=== PATIENT | female | born 1965 | race Caucasian/White ===

== ENCOUNTER 2017-07-21 15:17 | Emergency (ER) | payer MEDICARE, MEDICAID ==
[~2017-07-21] VITALS: Ht 149.9 cm; Wt 100.0 kg
[~2017-07-21 15:17] MED LIST: CYCLOBENZAPRINE; GABA100C PO; HYDR-519; LORA-250; OMEP20TA2; OXYCONTIN; PRILOSEC; SEE MED SHEET; TRAMADOL; VALIUM
[2017-07-21 18:34] LABS: CLARITY URINE CLEAR (CLEAR); COLOR URINE YELLOW (YELLOW); KETONES URINE NEGATIVE (NEGATIVE); LEUKOCYTE ESTERASE URINE NEGATIVE (NEGATIVE); NITRITE URINE NEGATIVE (NEGATIVE); OCCULT BLOOD URINE NEGATIVE (NEGATIVE); PH URINE 6.5 (4.5-8.0); PROTEIN URINE NEGATIVE (NEGATIVE); SPECIFIC GRAVITY URINE 1.021 (1.005-1.030)
[2017-07-21 18:46] LABS: BASOPHILS % 0.6 % (0.0-2.0); EOSINOPHILS % 1.7 % (0.0-5.0); HEMATOCRIT. 42.8 % (36.0-48.0); HEMOGLOBIN. 13.8 g/dL (12.0-16.0); LYMPHOCYTES % 39.2 % (20.0-50.0); MEAN CORPUSCULAR HEMOGLOBIN 30.2 pg (28.0-32.0); MEAN CORPUSCULAR VOLUME 93.6 fL (81.0-99.0); MONOCYTES % 8.4 % (2.0-8.0); NEUTROPHILS % 50.1 % (40.0-76.0); PLATELET 286 x1000/uL (130-400); RED BLOOD CELL COUNT 4.58 mill/uL (4.2-5.4); RED CELL DISTRIBUTION WIDTH 13.9 % (11.6-14.6)
[2017-07-21 18:47] LABS: *AMPHETAMINES SCREEN URINE NEGATIVE (NEGATIVE); *BARBITURATES SCREEN URINE NEGATIVE (NEGATIVE); *BENZODIAZEPINES SCREEN URINE NEGATIVE (NEGATIVE); *COCAINE SCREEN URINE NEGATIVE (NEGATIVE); CANNABINOID URINE SCREEN NEGATIVE (NEGATIVE); OPIATES URINE SCREEN NEGATIVE (NEGATIVE); PHENCYCLIDINE URINE SCREEN NEGATIVE (NEGATIVE)
[2017-07-21 18:51] LABS: METHADONE URINE SCREEN PRESUMTIVE POSITIVE (NEGATIVE)
[2017-07-21 18:51] LABS: CHLORIDE 110 mEq/L (98-107)
[2017-07-21 18:57] LABS: CARBON DIOXIDE 25 mEq/L (21-32); ETHANOL BLOOD < 10 mg/dL
[2017-07-21] MEDS ORDERED: ACETAMINOPHEN 325MG TABLET PO ONE (21:00)
[2017-07-22] MEDS ORDERED: HALOPERIDOL 2MG TABLET PO ONE (07:15)
[2017-07-22] MEDS ORDERED: LORAZEPAM 1MG TABLET PO ONE (07:15)
[2017-07-22] MEDS ORDERED: NAPR-681 PO (13:47)
[2017-07-22] MEDS ORDERED: DOCUSATE SODIUM (13:47)
[2017-07-22] MEDS ORDERED: ATEN-42 PO (13:47)
[2017-07-22] MEDS ORDERED: OMEP20CA10 PO (13:47)
[2017-07-22] MEDS ORDERED: TOPI50TA24 PO (13:47)
[2017-07-22] MEDS ORDERED: ROSU10TA PO (13:47)
[2017-07-22] MEDS ORDERED: METH5TAB2 PO (13:47)
[2017-07-22] MEDS ORDERED: ALBU6.7H IH (13:47)
[2017-07-22] MEDS ORDERED: RANI300T4 PO (13:47)
[2017-07-22] MEDS ORDERED: GABA-531 PO (13:47)
[2017-07-22 18:48] VITALS: BP 113/63
[2017-07-22] MEDS ORDERED: ARIPIPRAZOLE 5MG TABLET PO ONE (20:00)
== END 2017-07-22 19:50 ==
LOC: ER 15:47
DX: F29 Unspecified psychosis not due to a substance or known physiological condition (principal); F11.10 Opioid abuse, uncomplicated; G89.29 Other chronic pain; I10 Essential (primary) hypertension; J45.909 Unspecified asthma, uncomplicated; Z79.891 Long term (current) use of opiate analgesic
CPT/HCPCS: 36415; 80048; 80305; 81003; 85025; 99285; G0482

== ENCOUNTER 2017-08-16 17:22 | Emergency (ER) | payer MEDICARE, MEDICAID ==
[~2017-08-16] VITALS: Ht 152.4 cm; Wt 78.0 kg
[~2017-08-16 17:22] MED LIST changes: +ALBU6.7H IH; +ATEN-42 PO; -CYCLOBENZAPRINE; +DOCUSATE SODIUM; +GABA-531 PO; -GABA100C PO; -HYDR-519; -LORA-250; +METH5TAB2 PO; +NAPR-681 PO; +OMEP20CA10 PO; -OXYCONTIN; -PRILOSEC; +RANI300T4 PO; +ROSU10TA PO; -SEE MED SHEET; +TOPI50TA24 PO; -TRAMADOL; -VALIUM
[2017-08-16] MEDS ORDERED: ASPI-986 PO (17:26)
[2017-08-16] MEDS ORDERED: DIAZ2TAB PO (17:27)
[2017-08-16] MEDS ORDERED: LISI-186 PO (17:27)
[2017-08-16] MEDS ORDERED: METO1TAB39 PO (17:27)
[2017-08-16 19:23] LABS: BASOPHILS % 0.5 % (0.0-2.0); EOSINOPHILS % 1.9 % (0.0-5.0); HEMATOCRIT. 37.3 % (36.0-48.0); HEMOGLOBIN. 12.5 g/dL (12.0-16.0); MEAN CORPUSCULAR HEMOGLOBIN 32.2 pg (28.0-32.0); MEAN CORPUSCULAR VOLUME 96.4 fL (81.0-99.0); MEAN PLATELET VOLUME 10.2 fl (7.4-10.4); MONOCYTES % 9.6 % (2.0-8.0); PLATELET 273 x1000/uL (130-400); RED BLOOD CELL COUNT 3.87 mill/uL (4.2-5.4); RED CELL DISTRIBUTION WIDTH 13.7 % (11.6-14.6)
[2017-08-16 19:28] LABS: CHLORIDE 112 mEq/L (98-107); HCG SCREEN NEGATIVE
[2017-08-16 19:36] LABS: ETHANOL BLOOD < 10 mg/dL
[2017-08-16 20:50] LABS: CLARITY URINE TURBID (CLEAR); COLOR URINE YELLOW (YELLOW); KETONES URINE NEGATIVE (NEGATIVE); LEUKOCYTE ESTERASE URINE TRACE (NEGATIVE); NITRITE URINE NEGATIVE (NEGATIVE); OCCULT BLOOD URINE NEGATIVE (NEGATIVE); PROTEIN URINE NEGATIVE (NEGATIVE); UROBILINOGEN URINE 0.2 E.U./dL (0.2-1.0)
[2017-08-16 21:00] LABS: *AMPHETAMINES SCREEN URINE NEGATIVE (NEGATIVE); *BARBITURATES SCREEN URINE NEGATIVE (NEGATIVE); *BENZODIAZEPINES SCREEN URINE NEGATIVE (NEGATIVE); *COCAINE SCREEN URINE NEGATIVE (NEGATIVE); CANNABINOID URINE SCREEN NEGATIVE (NEGATIVE); METHADONE URINE SCREEN NEGATIVE (NEGATIVE); OPIATES URINE SCREEN NEGATIVE (NEGATIVE); PHENCYCLIDINE URINE SCREEN NEGATIVE (NEGATIVE)
[2017-08-16] MEDS ORDERED: IBUPROFEN 600MG TABLET PO ONE (21:45)
[2017-08-16 22:55] VITALS: BP 122/74
== END 2017-08-16 22:15 | disposition home or self-care (01) ==
LOC: ER 17:42
DX: J02.9 Acute pharyngitis, unspecified (principal); F20.9 Schizophrenia, unspecified; F32.9 Major depressive disorder, single episode, unspecified; I10 Essential (primary) hypertension; R45.851 Suicidal ideations; Z88.5 Allergy status to narcotic agent; Z79.82 Long term (current) use of aspirin
CPT/HCPCS: 36415; 80053; 80305; 80307; 80329; 81001; 84703; 85025; 87070; 87430; 99284; G0482

== ENCOUNTER 2018-11-07 01:32 | Inpatient (IN) | payer OTHER, MEDICAID ==
[2018-11-07] VITALS (10 sets, daily range): BP systolic 92–162; BP diastolic 19–105
[~2018-11-07] VITALS: Ht 149.9 cm; Wt 99.3 kg
[~2018-11-07 01:32] MED LIST changes: +ASPI-986 PO; +DIAZ2TAB PO; +LISI-186 PO; +METO1TAB39 PO
[2018-11-07] MEDS ORDERED: FAMOTIDINE 20MG/2ML VIAL IV STA (01:47)
[2018-11-07] MEDS ORDERED: SODIUM CHLORIDE 0.9% 1,000 ML IV ONE ×2 (01:47)
[2018-11-07] MEDS ORDERED: ONDANSETRON HCL 4MG/2ML INJ IV STA (01:47)
[2018-11-07] MEDS ORDERED: MORPHINE SULFATE 4 MG/ML CPJ (NOT FOR IM USE) IV STA (01:47)
[2018-11-07] MEDS ORDERED: LEVOFLOXACIN 750MG PREMIX 150 ML IV ONE (02:00)
[2018-11-07] MEDS ORDERED: METRONIDAZOLE 500 MG PREMIX 100 ML IV ONE (02:00)
[2018-11-07 02:18] LABS: HEMATOCRIT. 39.3 % (36.0-48.0); MEAN CORPUSCULAR HEMOGLOBIN 30.6 pg (28.0-32.0); MEAN CORPUSCULAR VOLUME 92.5 fL (81.0-99.0); MEAN PLATELET VOLUME 9.6 fl (7.4-10.4); PLATELET 365 x1000/uL (130-400); RED BLOOD CELL COUNT 4.25 mill/uL (4.2-5.4); RED CELL DISTRIBUTION WIDTH 13.9 % (11.6-14.6)
[2018-11-07 02:24] LABS: CHLORIDE 107 mEq/L (98-107)
[2018-11-07 02:29] LABS: ETHANOL BLOOD < 10 mg/dL
[2018-11-07 02:38] LABS: ATYPICAL LYMPHOCYTES 1; PLATELET ESTIMATE NORMAL
[2018-11-07] MEDS ORDERED: SODIUM CHLORIDE 0.9% 1000ML BAG (SEPSIS BOLUS) IV ONE (03:45)
[2018-11-07 04:21] LABS: CLARITY URINE CLEAR (CLEAR); COLOR URINE YELLOW (YELLOW); KETONES URINE NEGATIVE (NEGATIVE); LEUKOCYTE ESTERASE URINE NEGATIVE (NEGATIVE); NITRITE URINE NEGATIVE (NEGATIVE); OCCULT BLOOD URINE NEGATIVE (NEGATIVE); PROTEIN URINE NEGATIVE (NEGATIVE); SPECIFIC GRAVITY URINE 1.005 (1.005-1.030); UROBILINOGEN URINE 0.2 E.U./dL (0.2-1.0)
[2018-11-07 04:37] LABS: *AMPHETAMINES SCREEN URINE NEGATIVE (NEGATIVE); *BARBITURATES SCREEN URINE NEGATIVE (NEGATIVE); *BENZODIAZEPINES SCREEN URINE NEGATIVE (NEGATIVE); *COCAINE SCREEN URINE NEGATIVE (NEGATIVE); METHADONE URINE SCREEN NEGATIVE (NEGATIVE); OPIATES URINE SCREEN PRESUMTIVE POSITIVE (NEGATIVE)
[2018-11-07 04:38] LABS: CANNABINOID URINE SCREEN NEGATIVE (NEGATIVE); PHENCYCLIDINE URINE SCREEN NEGATIVE (NEGATIVE)
[2018-11-07] MEDS ORDERED: GUAIFENESIN 200MG/10ML SUGAR FREE UDC PO PRN (07:45)
[2018-11-07] MEDS ORDERED: ONDANSETRON HCL 4MG/2ML INJ IV PRN (07:45)
[2018-11-07] MEDS ORDERED: DOCUSATE SODIUM 100MG CAPSULE PO PRN (07:45)
[2018-11-07] MEDS ORDERED: IPRATROPIUM/ALBUTEROL 0.5-3(2.5)MG/3ML NEB INH PRN (07:45)
[2018-11-07] MEDS ORDERED: MAGNESIUM/ALUMINUM HYDROXIDE/SIMETHICONE 30ML UDC PO PRN (07:45)
[2018-11-07] MEDS ORDERED: CLONIDINE 0.1MG TABLET PO PRN (07:45)
[2018-11-07] MEDS ORDERED: NITROGLYCERIN 0.4MG TABLET SL SL PRN (07:45)
[2018-11-07 07:56] LABS: T4 FREE 0.95 ng/dL (0.76-1.46)
[2018-11-07] MEDS ORDERED: CEFTRIAXONE 1 G PREMIX 50 ML IV SCH (10:00)
[2018-11-07] MEDS: SUCRALFATE 1 G/10 ML UDC PO SCH ×4 (10:37→21:00)
[2018-11-07] MEDS: FAMOTIDINE 20MG TABLET PO SCH ×2 (10:37→20:59)
[2018-11-07] MEDS: ASCORBIC ACID 500 MG TABLET PO SCH ×2 (10:37→20:59)
[2018-11-07] MEDS: ENOXAPARIN 40MG/0.4ML SYR SUBCUT SCH (10:38)
[2018-11-07] MEDS: KETOROLAC 15MG/ML VIAL IV PRN ×3 (10:40→21:08)
[2018-11-07] MEDS: CEFTRIAXONE 1 G PREMIX 50 ML IV SCH (12:01)
[2018-11-07] MEDS: SODIUM CHLORIDE 0.9% 1,000 ML IV SCH (12:01)
[2018-11-07] MEDS: ACETAMINOPHEN 325MG TABLET PO PRN (12:36)
[2018-11-07 16:31] LABS: CREATINE KINASE 157 IU/L (26-192)
[2018-11-07 16:32] LABS: CREATINE KINASE MB FRACTION 1.2 ng/mL (0.5-3.6)
[2018-11-07] MEDS ORDERED: DEXTROSE 50% WATER 50ML SYRINGE IV PRN (18:45)
[2018-11-07] MEDS: BLOOD SUGAR DIAGNOSTIC STRIP TEST SCH (20:43)
[2018-11-07] MEDS: INSULIN LISPRO 100 UNITS/ML SUBCUT SCH (20:44)
[2018-11-07] MEDS: ZOLPIDEM TARTRATE 5MG TABLET PO PRN (20:59)
[2018-11-07 23:59] LABS: CREATINE KINASE 149 IU/L (26-192); CREATINE KINASE MB FRACTION 1.3 ng/mL (0.5-3.6)
[2018-11-08] VITALS (18 sets, daily range): BP systolic 109–161; BP diastolic 62–109
[2018-11-08] MEDS: SODIUM CHLORIDE 0.9% 1,000 ML IV SCH ×2 (00:08→16:37)
[2018-11-08] MEDS: LEVOFLOXACIN 500MG PREMIX 100 ML IV SCH (01:23)
[2018-11-08] MEDS: ACETAMINOPHEN 325MG TABLET PO PRN (02:17)
[2018-11-08] MEDS: KETOROLAC 15MG/ML VIAL IV PRN ×4 (03:08→21:51)
[2018-11-08] MEDS: BLOOD SUGAR DIAGNOSTIC STRIP TEST SCH ×4 (06:44→21:48)
[2018-11-08] MEDS: INSULIN LISPRO 100 UNITS/ML SUBCUT SCH ×4 (08:00→21:00)
[2018-11-08] MEDS: SUCRALFATE 1 G/10 ML UDC PO SCH ×4 (08:35→21:49)
[2018-11-08] MEDS: ASCORBIC ACID 500 MG TABLET PO SCH ×2 (08:35→21:49)
[2018-11-08] MEDS: FAMOTIDINE 20MG TABLET PO SCH ×2 (08:35→21:49)
[2018-11-08] MEDS: CEFTRIAXONE 1 G PREMIX 50 ML IV SCH (08:49)
[2018-11-08] MEDS: ENOXAPARIN 40MG/0.4ML SYR SUBCUT SCH (08:49)
[2018-11-08] MEDS: ZOLPIDEM TARTRATE 5MG TABLET PO PRN (21:49)
[2018-11-09] VITALS (10 sets, daily range): BP systolic 108–153; BP diastolic 67–93
[2018-11-09] MEDS: LEVOFLOXACIN 500MG PREMIX 100 ML IV SCH (02:16)
[2018-11-09] MEDS: ACETAMINOPHEN 325MG TABLET PO PRN (03:10)
[2018-11-09] MEDS: SODIUM CHLORIDE 0.9% 1,000 ML IV SCH (05:09)
[2018-11-09] MEDS: KETOROLAC 15MG/ML VIAL IV PRN ×2 (05:10→11:18)
[2018-11-09] MEDS: BLOOD SUGAR DIAGNOSTIC STRIP TEST SCH (07:30)
[2018-11-09] MEDS: INSULIN LISPRO 100 UNITS/ML SUBCUT SCH (08:00)
[2018-11-09] MEDS: FAMOTIDINE 20MG TABLET PO SCH (09:27)
[2018-11-09] MEDS: ASCORBIC ACID 500 MG TABLET PO SCH (09:27)
[2018-11-09] MEDS: SUCRALFATE 1 G/10 ML UDC PO SCH (09:27)
[2018-11-09] MEDS: CEFTRIAXONE 1 G PREMIX 50 ML IV SCH (09:28)
[2018-11-09] MEDS: ENOXAPARIN 40MG/0.4ML SYR SUBCUT SCH (09:28)
== END 2018-11-09 16:24 | disposition home or self-care (01) | DRG 872 ==
LOC: ER 01:32 → 5EST 04:41 → EDBEDREQTM 04:57 → EDBEDREQSVC 04:57 → EDBEDREQ 04:57 → ENRESERV 07:12 → SUPCPDRO 07:40
PROVIDERS: ADMIT Internal Medicine; ATTEND Internal Medicine
DX: A41.9 Sepsis, unspecified organism (principal); Z68.41 Body mass index [BMI] 40.0-44.9, adult; E11.9 Type 2 diabetes mellitus without complications; E87.6 Hypokalemia; E66.01 Morbid (severe) obesity due to excess calories; E78.00 Pure hypercholesterolemia, unspecified; E87.5 Hyperkalemia; F20.9 Schizophrenia, unspecified; F31.9 Bipolar disorder, unspecified; I10 Essential (primary) hypertension; K21.9 Gastro-esophageal reflux disease without esophagitis; Z79.4 Long term (current) use of insulin; Z88.5 Allergy status to narcotic agent; Z79.82 Long term (current) use of aspirin; Z79.899 Other long term (current) drug therapy
CPT/HCPCS: 36415; 71045; 74176; 80061; 80305; 80320; 82550; 82553; 82962; 83036; 83605; 84145; 84439; 84443; 84484; 86850; 86900; 93005; 93970; 96365; 96375; 97162; 97166; 99291; J0696; J1650; J1885; J1956; J2270; J2405; J3490; J7030; G0480

== ENCOUNTER 2019-01-07 17:20 | Emergency (ER) | payer OTHER, MEDICAID ==
[~2019-01-07] VITALS: Ht 149.9 cm; Wt 100.0 kg
[~2019-01-07 17:20] MED LIST changes: +CRES10 PO; -OMEP20CA10 PO; +OMEP20CA5 PO; -ROSU10TA PO
[2019-01-07] MEDS ORDERED: KETOROLAC 60MG/2ML VIAL IM ONE (18:15)
[2019-01-07] MEDS ORDERED: HYDROCODONE/ACETAMINOPHEN 5/325MG TABLET PO ONE (18:15)
[2019-01-07] MEDS ORDERED: DIPHENHYDRAMINE 50MG CAPSULE PO ONE (18:45)
[2019-01-07] MEDS ORDERED: DOXYCYCLINE HYCLATE 100MG CAPSULE PO ONE (19:45)
[2019-01-07 20:08] VITALS: BP 147/86
== END 2019-01-07 20:24 | disposition home or self-care (01) ==
LOC: ER 17:20
DX: S70.362A Insect bite (nonvenomous), left thigh, initial encounter (principal); F31.9 Bipolar disorder, unspecified; I11.9 Hypertensive heart disease without heart failure; F20.9 Schizophrenia, unspecified; Z79.82 Long term (current) use of aspirin; Z79.899 Other long term (current) drug therapy; Z88.6 Allergy status to analgesic agent; W57.XXXA Bitten or stung by nonvenomous insect and other nonvenomous arthropods, initial encounter; Y93.89 Activity, other specified; Y92.89 Other specified places as the place of occurrence of the external cause; Y99.8 Other external cause status
CPT/HCPCS: 96372; 99284; J1885; Q0163

== ENCOUNTER 2019-01-09 09:53 | Emergency (ER) | payer MEDICARE, MEDICAID ==
[~2019-01-09] VITALS: Ht 149.9 cm; Wt 102.0 kg
[2019-01-09 10:01] VITALS: BP 147/88
== END 2019-01-09 16:01 | disposition left against medical advice (07) ==
LOC: ER 09:53
DX: M25.562 Pain in left knee (principal); M79.652 Pain in left thigh; Z53.21 Procedure and treatment not carried out due to patient leaving prior to being seen by health care provider

== ENCOUNTER 2020-10-04 11:26 | Emergency (ER) | payer MEDICAID, MEDICARE ==
[~2020-10-04] VITALS: Ht 152.4 cm; Wt 82.0 kg
[~2020-10-04 11:26] MED LIST changes: -ALBU6.7H IH; +ALBU6.7H11 IH; -GABA-531 PO; +GABA-532 PO; +OMEP20CA14 PO; -OMEP20CA5 PO
[2020-10-04] MEDS ORDERED: KETOROLAC 30MG/ML VIAL IM ONE (11:45)
[2020-10-04] MEDS ORDERED: METHOCARBAMOL 500MG TABLET PO ONE (13:30)
[2020-10-04 13:36] VITALS: BP 158/72
== END 2020-10-04 13:37 | disposition home or self-care (01) ==
LOC: ER 11:26
DX: M79.622 Pain in left upper arm (principal); F32.9 Major depressive disorder, single episode, unspecified; I10 Essential (primary) hypertension; Z85.9 Personal history of malignant neoplasm, unspecified; Z79.82 Long term (current) use of aspirin
CPT/HCPCS: 93971; 96372; 99284; J1885

== ENCOUNTER 2021-02-10 14:09 | Emergency (ER) | payer MEDICAID, OTHER ==
[~2021-02-10] VITALS: Ht 165.1 cm; Wt 102.0 kg
[2021-02-10 14:17] VITALS: BP 109/44
[2021-02-10] MEDS ORDERED: NAPR-681 PO (15:39)
[2021-02-10] MEDS ORDERED: IBUPROFEN 600MG TABLET PO ONE (15:45)
[2021-02-10] MEDS ORDERED: TRAMADOL 50MG TABLET PO ONE (16:00)
== END 2021-02-10 16:24 | disposition home or self-care (01) ==
LOC: ER 14:39
DX: M25.551 Pain in right hip (principal); M25.561 Pain in right knee; M25.572 Pain in left ankle and joints of left foot; M79.672 Pain in left foot; M25.532 Pain in left wrist; M79.642 Pain in left hand; I10 Essential (primary) hypertension; E11.9 Type 2 diabetes mellitus without complications; Z88.6 Allergy status to analgesic agent; Z79.899 Other long term (current) drug therapy; Z79.82 Long term (current) use of aspirin; Z98.890 Other specified postprocedural states
CPT/HCPCS: 73110; 73130; 73502; 73562; 73610; 73630; 99284

== ENCOUNTER 2024-07-23 18:57 | Emergency (ER) | payer BC, MEDICAID ==
[~2024-07-23] VITALS: Ht 149.9 cm; Wt 91.0 kg
[~2024-07-23 18:57] MED LIST changes: -ALBU6.7H11 IH; +ALBU6.7H15 IH; +GABA-1180 PO; -GABA-532 PO; +METH-816 PO; -METH5TAB2 PO; -NAPR-681 PO; -OMEP20TA2; +OMEP20TA23; +TOPI-95 PO; -TOPI50TA24 PO
[2024-07-23 19:07] VITALS: O2SAT 99
[2024-07-23 19:59] VITALS: O2SAT 98
[2024-07-23] MEDS ORDERED: TRAMADOL 50MG TABLET PO ONE (21:30)
[2024-07-23] MEDS ORDERED: ACETAMINOPHEN 325MG TABLET PO NR (21:30)
[2024-07-23] MEDS ORDERED: TRAM50TA3 MT (21:35)
[2024-07-23] MEDS ORDERED: METH4TAB95 MT (21:35)
[2024-07-23] MEDS ORDERED: CETI10CA2 MT (21:37)
[2024-07-23] MEDS ORDERED: FLUT9.9S BOTHNSTRLS (21:37)
[2024-07-23 22:30] VITALS: BP 155/98; PULSE 85; RESP 18; TEMP 98.5
[2024-07-23] MEDS: ACETAMINOPHEN 325MG TABLET PO ONE (22:30)
[2024-07-23] MEDS: TRAMADOL 50MG TABLET PO NR (22:30)
== END 2024-07-23 22:32 | disposition home or self-care (01) ==
LOC: ER 18:57
DX: G89.29 Other chronic pain (principal); M54.9 Dorsalgia, unspecified; H69.90 Unspecified Eustachian tube disorder, unspecified ear; E11.9 Type 2 diabetes mellitus without complications; I10 Essential (primary) hypertension; Z79.899 Other long term (current) drug therapy; Z88.6 Allergy status to analgesic agent; Z88.5 Allergy status to narcotic agent; Z79.82 Long term (current) use of aspirin
CPT/HCPCS: 99283

== ENCOUNTER 2025-03-03 22:20 | Emergency (ER) | payer BC, MEDICAID ==
[~2025-03-03] VITALS: Ht 149.9 cm; Wt 94.8 kg
[~2025-03-03 22:20] MED LIST changes: +CETI10CA2 MT; +FLUT9.9S BOTHNSTRLS; +METH4TAB95 MT; +TRAM50TA3 MT
[2025-03-03 22:21] VITALS: O2SAT 98
[2025-03-03 22:37] VITALS: BP 162/93; PULSE 85; RESP 24; TEMP 36.7; O2SAT 99
[2025-03-04] MEDS ORDERED: FENO145T25 PO (16:48)
[2025-03-04] MEDS ORDERED: ZOLP5TAB2 MT (17:20)
[2025-03-06] MEDS ORDERED: PRED10TA MT (15:24)
[2025-03-06] MEDS ORDERED: CIPR-264 MT (15:26)
== END 2025-03-03 23:22 | disposition left against medical advice (07) ==
LOC: ER 22:20
DX: R07.89 Other chest pain (principal); Z53.21 Procedure and treatment not carried out due to patient leaving prior to being seen by health care provider
CPT/HCPCS: 93005; 99283